=== PATIENT | male | born 1960 | race American Indian/Alaskan Native ===

== ENCOUNTER 2017-04-25 15:26 | Emergency (ER) | payer MEDICAID, OTHER ==
[~2017-04-25] VITALS: Ht 172.7 cm; Wt 73.0 kg
[2017-04-25 15:34] VITALS: Ht 172.7 cm; Wt 73.0 kg
--- NOTE | 2017-04-25 17:31 | RADRPT ---
PROCEDURE: US soft tissue CLINICAL INDICATION: Visual changed. TECHNIQUE: Multiple hall scale sonographic images of the left lobe were obtained with a high frequency linear t ransducer. COMPARISON: None available. FINDINGS: There is abnormal wavy linear echogenicity extending through the vitreous within the posterior aspec t of the globe, highly suspicious for hyaloid retinal detachment. No additional abnormal echogenicit y is seen within the vitreous. The anterior chamber appears intact and unremarkable. The visualized optic nerve is grossly unremar kable. IMPRESSION: 1. Findings as described, highly suspicious for hyaloid retinal detachment. CT or MRI can be perfor med for further evaluation. Ophthalmology consultation is recommended. These findings discussed with Dr. Bauman in the ED at 1729 hours on 04/25/2017. RPTAT: EE .Vinicio Cerrato MD, Date Time Electronically viewed and signed by .Vinicio Cerrato MD, on 04/25/2017 17:31 .P/
--- NOTE | 2017-04-25 17:57 | ERD ---
ER Documentation Chief Complaint Date/Time DATE: 04/25/17 TIME: 17:55 Chief Complaint Sent from MD for eval R/O Retinal Detachment HPI This 56-year-old male presents referred by his primary doctor for 3 week history of some shadowing on his lateral she will feel his left eye. He is able to see centrally. Denies any history of trauma or inciting events. Denies any headache, weakness, additional complaints ROS All systems reviewed and are negative except as per history of present illness. Allergies Allergies: Coded Allergies: No Known Allergy (Unverified , 04/25/17) PMhx/Soc Medical and Surgical Hx: pt denies Medical Hx, pt denies Surgical Hx Hx Alcohol Use: No Hx Substance Use: No Hx Tobacco Use: No Smoking Status: Never smoker Physical Exam Vitals Vital Signs Date Time Temp Pulse Resp B/P Pulse Ox O2 Delivery O2 Flow Rate FiO2 04/25/17 15:34 98.3 53 20 122/68 99 Physical Exam Const: [], [id number]-tma-mesounrow. Head: Atraumatic Eyes: Normal Conjunctiva. Intraocular pressure shows no acute abnormalities is 26 on the left. Visual acuity is 20/25 bilaterally ENT: Normal External Ears, Nose and Mouth. Neck: Full range of motion..~ No meningismus. Resp: Clear to auscultation bilaterally Cardio: Regular rate and rhythm, no murmurs Abd: Soft, non tender, non distended. Normal bowel sounds Skin: No petechiae or rashes Back: No midline or flank tenderness Ext: No cyanosis, or edema Neur: Awake and alert Psych: Normal Mood and Affect Procedures/MDM Red ultrasound shows a left retinal possible hyaloid type detachment. CT recommended was performed of the orbits which shows no acute abnormalities and retinal detachment is not well-visualized Call was placed for ophthalmology correctional casework specialist at [facility]. No callback was received. Patient presents with history and signs and symptoms of a 3 week old retinal detachment. Given the duration and urgent follow-up is appropriate tomorrow. Patient will referred to [facility] tomorrow. Patient was advised he may need authorization from his primary doctor. Patient was advised on importance of follow-up with specialist to avoid permanent visual complications. There is no additional signs or symptoms to suggest emergent eye condition such as retinal artery occlusion, orbital cellulitis, acute glaucoma Departure Diagnosis: Primary Impression: Retinal detachment Laterality: left Qualified Code: H33.22 - Retinal detachment, left Condition: Stable Patient Instructions: Retinal Detachment Referrals: [facility] Hours: Tue - Tue 9:00 AM - 5:00 PM Additional Instructions: va al specialista enma. Va al diego doctor/ specialista para mas evaluacon . posiblemente necesita autorizado de diego doctor primario para specialista. Regresa para fiebre, o mas o nueva simptomas. MAEVE SPIVEY MD Apr 25, 2017 17:57
--- NOTE | 2017-04-25 19:06 | RADRPT ---
PROCEDURE: CT orbits noncontrast CLINICAL INDICATION: Vision changes. TECHNIQUE: Noncontrast CT of the orbits was obtained. Coronal and sagittal re-formations were provid ed. The administered radiation dose was CTDI 28.96 mGy, DLP 297.65 mGycm. One or more of the follow ing dose reduction techniques were used: Automated exposure control, Adjustment of the mA and/or kV according to patient size, or Use of iterative reconstruction technique. COMPARISON: There are no similar studies submitted for comparison. Ultrasound of the left globe from the same day. FINDINGS: Evaluation is limited without intravenous contrast. There is no acute fracture. The bilateral globes are intact. There is no orbital hematoma. The bilateral optic nerves are normal in size. The bilateral extraocular muscles are within normal limits. No definite orbital mass is identified. There is mild bilateral ethmoid sinus mucosal thickening. The visualized portions of the brain are unremarkable. No destructive osseous lesion is identified. IMPRESSION: 1. No orbital hematoma. 2. No acute fracture. 3. Previous noted left right detachment is not well evaluated. Correlate with ophthalmologic exami nation. 4. No definite orbital mass. Further findings as detailed above. RPTAT: HVF .Alberto Barahona MD, MD Date Time Electronically viewed and signed by .Alberto Barahona MD, MD on 04/25/2017 19:05 .F/
== END 2017-04-25 19:23 | disposition home or self-care (01) ==
LOC: FTE 15:26
DX: H33.22 Serous retinal detachment, left eye (principal)
CPT/HCPCS: 70480; 76536; Z7502